=== PATIENT | female | born 1960 | race Caucasian/White ===

== ENCOUNTER 2020-03-15 13:59 | Inpatient (IN) | payer OTHER ==
[~2020-03-15 13:59] MED LIST: Iopamidol-370 76% 500 ML 1 ML ONE
[2020-03-15] MEDS ORDERED: Morphine 4 MG/ML VIAL ONE ×2 (14:04→14:35)
[2020-03-15] MEDS ORDERED: Ondansetron PF 4 MG/2 ML Vial ONE ×2 (14:04→16:10)
[2020-03-15 14:25] LABS: #Eosinphils 0.1 thou/uL (0.0-0.7); #Lymphocytes 2.9 thou/uL (1.20-3.40); #Monocytes 0.4 thou/uL (0.11-0.59); #Neutrophils 7.6 thou/uL (1.40-6.50); %Basophils 0.4 % (0.0-1.0); %Eosinophils 0.7 % (0.0-10.0); %Lymphocytes 26.5 % (21.0-51.0); %Monocytes 3.9 % (0.0-10.0); %Neutrophils 68.4 % (42.0-75.0); Mean Corpuscular HGB CONC 34.4 g/dL (32.0-36.0); Mean Corpuscular Hemoglobin 31.4 pg (27.0-31.0); Mean Corpuscular Volume 91.4 fL (78.0-98.0); Mean Platelet Volume 8.5 fL (7.4-10.4); Platelet Count 268 thou/uL (130-400); RBC Distribution Width 11.3 % (11.5-14.5); Red Blood Cell (RBC) Count 4.77 mill/uL (4.20-5.40); White Blood Cell (WBC) Count 11.1 thou/uL (4.8-10.8)
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
[2020-03-15 14:32] LABS: PTT 25.4 sec (22.9-36.1); Prothrombin Time 13.5 sec (12.0-14.7)
[2020-03-15 14:58] LABS: ALT (SGPT) 74 U/L (8-55); AST (SGOT) 81 U/L (5-34); Albumin 4.1 g/dL (3.5-5.0); Alkaline Phosphatase 91 U/L (40-110); Anion Gap 18 mmol/L (10-20); BUN (Urea Nitrogen) 11 mg/dL (9.8-20.1); Bilirubin, Total 0.6 mg/dL (0.2-1.2); Calc. Creatinine Clearance 0 mL/min (70-130); Calcium 9.4 mg/dL (7.8-10.44); Carbon Dioxide 21 mmol/L (22-29); Chloride 102 mmol/L (98-107); Estimated GFR-MDRD 73; Globulin 2.6 g/dL (2.4-3.5); Glucose 157 mg/dL (70-105); Potassium 3.3 mmol/L (3.5-5.1); Protein, Total 6.7 g/dL (6.0-8.3); Sodium 138 mmol/L (136-145)
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
[2020-03-15] MEDS ORDERED: Lidocaine 1% (PF) 30 ML VIAL ONE (15:18)
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
[2020-03-15 16:07] LABS: Magnesium 1.7 mg/dL (1.6-2.6); Phosphorus 2.3 mg/dL (2.3-4.7)
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
[2020-03-15 16:15] LABS: Lactic Acid 1.8 mmol/L (0.5-2.2)
[2020-03-15] MEDS ORDERED: hydrALAZINE 20 MG/ML VIAL SLOW IVP PRN (16:18)
[2020-03-15] MEDS ORDERED: Dextrose 50% Abboject 50 ML SYRINGE SLOW IVP PRN (16:18)
[2020-03-15] MEDS ORDERED: Dextrose 5% in Water 1,000 ML IV PRN (16:18)
[2020-03-15] MEDS ORDERED: Lorazepam 2 MG/ML VIAL SLOW IVP PRN (16:18)
[2020-03-15] MEDS ORDERED: Ondansetron PF 4 MG/2 ML Vial IVP PRN (16:18)
[2020-03-15] MEDS ORDERED: Morphine 2 MG/ML VIAL SLOW IVP PRN (16:18)
[2020-03-15] MEDS ORDERED: traMADol HCl 50 MG TAB PO PRN (16:21)
[2020-03-15] MEDS ORDERED: Sodium Chloride 0.9% 1,000 ML IV SCH (16:30)
[2020-03-15] MEDS ORDERED: Potassium Phosphate 30 MMOL in Sodium Chloride 0.9% 250 ML 250 ML IVPB SCH (17:30)
[2020-03-15] MEDS ORDERED: Magnesium 2 GM/50 ML 2 GM in Premix Bag 1 BAG IVPB SCH (17:45)
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
[2020-03-15] MEDS ORDERED: Magnesium 2 GM/50 ML BAG (IN WATER) ONE (18:38)
[2020-03-15] MEDS ORDERED: Acetaminophen 500 MG TAB ONE (18:38)
[2020-03-15] MEDS: Gabapentin 300 MG CAP PO SCH (22:23)
[2020-03-15] MEDS: Ibuprofen 600 MG TAB PO SCH (22:23)
[2020-03-15] MEDS: Famotidine/PF 20 mg/2ml Vial SLOW IVP SCH (22:24)
[2020-03-15] MEDS: Senokot S 8.6-50 MG TAB PO SCH (22:26)
[2020-03-15] MEDS: Acetaminophen 500 MG TAB PO SCH ×2 (22:26→22:30)
[2020-03-15] MEDS: traMADol HCl 50 MG TAB PO SCH (22:29)
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
[2020-03-15 23:32] VITALS: BMI 29.7
[2020-03-16] MEDS: Acetaminophen 500 MG TAB PO SCH ×3 (05:01→18:36)
[2020-03-16] MEDS: Ibuprofen 600 MG TAB PO SCH ×3 (05:02→21:26)
[2020-03-16] MEDS: traMADol HCl 50 MG TAB PO SCH ×4 (05:08→21:27)
[2020-03-16 05:15] LABS: #Lymphocytes 1.4 thou/uL (1.20-3.40); #Monocytes 0.5 thou/uL (0.11-0.59); #Neutrophils 7.1 thou/uL (1.40-6.50); %Basophils 0.1 % (0.0-1.0); %Eosinophils 0.3 % (0.0-10.0); %Lymphocytes 15.5 % (21.0-51.0); %Monocytes 5.3 % (0.0-10.0); %Neutrophils 78.8 % (42.0-75.0); Hemoglobin 12.6 g/dL (12.0-16.0); Mean Corpuscular HGB CONC 33.6 g/dL (32.0-36.0); Mean Corpuscular Hemoglobin 31.1 pg (27.0-31.0); Mean Corpuscular Volume 92.8 fL (78.0-98.0); Mean Platelet Volume 8.6 fL (7.4-10.4); Platelet Count 213 thou/uL (130-400); RBC Distribution Width 11.4 % (11.5-14.5); Red Blood Cell (RBC) Count 4.06 mill/uL (4.20-5.40); White Blood Cell (WBC) Count 9.1 thou/uL (4.8-10.8)
[2020-03-16 05:25] LABS: Anion Gap 16 mmol/L (10-20); BUN (Urea Nitrogen) 14 mg/dL (9.8-20.1); Calc. Creatinine Clearance 94 mL/min (70-130); Calcium 8.4 mg/dL (7.8-10.44); Carbon Dioxide 23 mmol/L (22-29); Chloride 98 mmol/L (98-107); Estimated GFR-MDRD 71; Glucose 142 mg/dL (70-105); Magnesium 2.2 mg/dL (1.6-2.6); Phosphorus 5.7 mg/dL (2.3-4.7); Potassium 3.1 mmol/L (3.5-5.1); Sodium 134 mmol/L (136-145)
--- NOTE | 2020-03-16 07:49 | RAD ---
EXAM: Single view of the chest HISTORY: Right apical pneumonia; right pneumothorax COMPARISON: CT chest 03/15/2020 FINDINGS: Single view of the chest shows an enlarged cardiomediastinal silhouette. No pneumothorax i s visualized. Linear opacities in both lower lobes likely represents atelectasis. No acute osseous abnormality. IMPRESSION: Bibasilar atelectasis
[2020-03-16 08:11] LABS: Amphetamine Not Detected (NotDetected); Barbiturates Screen Not Detected (NotDetected); Benzodiazepine Screen Detected (NotDetected); Cocaine Metabolite Screen Not Detected (NotDetected); Medtox Control Line Valid? VALID (VALID); Medtox Reader # READER 4; Methadone Not Detected (NotDetected); Methamphetamine Not Detected (NotDetected); Opiate Screen Detected (NotDetected); Oxycodone Screen Not Detected (NotDetected); Phencyclidine (PCP) Not Detected (NotDetected); THC/Cannabinoid Screen Detected (NotDetected); Tricyclic Screen Not Detected (NotDetected)
[2020-03-16] MEDS: Gabapentin 300 MG CAP PO SCH ×3 (08:16→21:26)
[2020-03-16] MEDS: Famotidine/PF 20 mg/2ml Vial SLOW IVP SCH ×2 (08:16→21:28)
[2020-03-16] MEDS: Senokot S 8.6-50 MG TAB PO SCH ×3 (08:17→21:28)
[2020-03-16] MEDS: Polyethylene Glycol 3350 17 GM Packet PO SCH (08:17)
[2020-03-16] MEDS ORDERED: Potassium Chloride 20 MEQ TAB PO SCH (09:15)
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
[2020-03-16] MEDS ORDERED: Melatonin 3 MG TAB PO PRN (10:28)
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
[2020-03-16 12:31] LABS: SARS-CoV-2 MS2 Positive; SARS-CoV-2 N Gene Negative; SARS-CoV-2 S Gene Negative; SARS-CoV-2 by NAA Not Detected (NotDetected); SARS-CoV-2 orf1ab Negative
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
[2020-03-17] MEDS: Acetaminophen 500 MG TAB PO SCH ×5 (00:24→23:29)
[2020-03-17] MEDS: traMADol HCl 50 MG TAB PO SCH ×4 (05:01→21:10)
[2020-03-17] MEDS: Ibuprofen 600 MG TAB PO SCH ×3 (05:01→21:11)
[2020-03-17 05:48] LABS: #Eosinphils 0.2 thou/uL (0.0-0.7); #Lymphocytes 1.9 thou/uL (1.20-3.40); #Monocytes 0.3 thou/uL (0.11-0.59); #Neutrophils 5.9 thou/uL (1.40-6.50); %Basophils 0.5 % (0.0-1.0); %Eosinophils 2.1 % (0.0-10.0); %Lymphocytes 22.5 % (21.0-51.0); %Monocytes 3.9 % (0.0-10.0); %Neutrophils 71.1 % (42.0-75.0); Hemoglobin 12.3 g/dL (12.0-16.0); Mean Corpuscular Hemoglobin 31.8 pg (27.0-31.0); Mean Corpuscular Volume 93.3 fL (78.0-98.0); Mean Platelet Volume 8.5 fL (7.4-10.4); Platelet Count 180 thou/uL (130-400); RBC Distribution Width 11.4 % (11.5-14.5); Red Blood Cell (RBC) Count 3.89 mill/uL (4.20-5.40); White Blood Cell (WBC) Count 8.2 thou/uL (4.8-10.8)
[2020-03-17 06:16] LABS: Anion Gap 11 mmol/L (10-20); BUN (Urea Nitrogen) 9 mg/dL (9.8-20.1); Calc. Creatinine Clearance 103 mL/min (70-130); Calcium 8.6 mg/dL (7.8-10.44); Carbon Dioxide 27 mmol/L (22-29); Chloride 104 mmol/L (98-107); Estimated GFR-MDRD 79; Glucose 101 mg/dL (70-105); Magnesium 2.4 mg/dL (1.6-2.6); Phosphorus 2.7 mg/dL (2.3-4.7); Potassium 3.2 mmol/L (3.5-5.1); Sodium 139 mmol/L (136-145)
[2020-03-17] MEDS ORDERED: Potassium Chloride 40 MEQ in Sodium Chloride 0.9% 250 ML 250 ML IVPB SCH (06:45)
[2020-03-17] MEDS ORDERED: Potassium Chloride 20 MEQ TAB PO SCH (07:45)
[2020-03-17] MEDS: Cyclobenzaprine 10 MG TAB PO PRN (08:33)
[2020-03-17] MEDS: Gabapentin 300 MG CAP PO SCH ×3 (08:33→21:11)
[2020-03-17] MEDS: Famotidine/PF 20 mg/2ml Vial SLOW IVP SCH (08:34)
[2020-03-17] MEDS: Enoxaparin Sodium 40 MG/0.4 ML SYRINGE SC SCH (08:34)
[2020-03-17] MEDS: Senokot S 8.6-50 MG TAB PO SCH ×2 (09:59→21:09)
[2020-03-17] MEDS: Famotidine 20 MG TAB PO SCH ×2 (09:59→21:09)
[2020-03-17] MEDS: Polyethylene Glycol 3350 17 GM Packet PO SCH (09:59)
[2020-03-17] MEDS ORDERED: Scopolamine 1.5 mg/72 hour Patch TD SCH (10:45)
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
[2020-03-18] MEDS: traMADol HCl 50 MG TAB PO SCH ×3 (05:00→15:13)
[2020-03-18] MEDS: Ibuprofen 600 MG TAB PO SCH ×2 (05:01→14:23)
[2020-03-18] MEDS: Acetaminophen 500 MG TAB PO SCH ×3 (05:01→18:15)
[2020-03-18] MEDS: Polyethylene Glycol 3350 17 GM Packet PO SCH (08:38)
[2020-03-18] MEDS: Enoxaparin Sodium 40 MG/0.4 ML SYRINGE SC SCH (08:38)
[2020-03-18] MEDS: Famotidine 20 MG TAB PO SCH ×2 (08:38→19:30)
[2020-03-18] MEDS: Senokot S 8.6-50 MG TAB PO SCH ×2 (08:39→19:32)
[2020-03-18] MEDS: Gabapentin 300 MG CAP PO SCH ×3 (08:39→19:30)
[2020-03-18] MEDS: traMADol HCl 50 MG TAB PO PRN ×2 (12:42→19:33)
[2020-03-18] MEDS: Cyclobenzaprine 10 MG TAB PO PRN (19:32)
[2020-03-18 19:36] VITALS: BP 156/79; TEMP 97.8
[2020-03-18] MEDS ORDERED: Metoprolol Tartrate 50 MG TAB PO SCH ×2 (21:00)
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
== END 2020-03-18 20:32 | DRG 964 ==
LOC: ERS 13:59 → EDBD 16:21 → ERHOLD 16:21 → SURG A 19:58
PROVIDERS: ADMIT Surgery; ATTEND Surgery
DX: S32.431A Displaced fracture of anterior column [iliopubic] of right acetabulum, initial encounter for closed fracture (principal); S27.0XXA Traumatic pneumothorax, initial encounter; S22.41XA Multiple fractures of ribs, right side, initial encounter for closed fracture; S32.119A Unspecified Zone I fracture of sacrum, initial encounter for closed fracture; R91.8 Other nonspecific abnormal finding of lung field; I10 Essential (primary) hypertension; F41.9 Anxiety disorder, unspecified; R40.2412 Glasgow coma scale score 13-15, at arrival to emergency department; S61.214A Laceration without foreign body of right ring finger without damage to nail, initial encounter; F32.9 Major depressive disorder, single episode, unspecified; Z98.890 Other specified postprocedural states; Z88.5 Allergy status to narcotic agent; Z79.899 Other long term (current) drug therapy; V44.5XXA Car driver injured in collision with heavy transport vehicle or bus in traffic accident, initial encounter
CPT/HCPCS: 36415; 70450; 71045; 71260; 72125; 72170; 74177; 80048; 80053; 80306; 80307; 83605; 83735; 84100; 85025; 85610; 85730; 87635; 93005; 96374; 96375; 96376; G0390; J1650; J2001; J2270; J2405; J3475; J3480; J7050; Q9967; S0028; U0003

== ENCOUNTER 2020-06-15 07:36 | Outpatient (CLI) | payer OTHER ==
--- NOTE | 2020-06-15 08:33 | MRI ---
EXAM: Left shoulder MRI without contrast: HISTORY: Left shoulder pain COMPARISON: None FINDINGS: Multiplanar, multisequence MRI examination of the shoulder is performed. A C joint:Arthrosis with minimal fluid and fat stranding in the subacromial and subdeltoid bursa. Sma ll undersurface spur of the distal clavicle. Supraspinatus tendon: Evidence for low-grade partial-thickness undersurface tearing at the level of t he magic angle. Infraspinatus tendon: Intact. Biceps tendon: Intact. Subscapularis tendon: Tendinopathy Rotator cuff muscles: Within normal limits of signal and volume.. 0.2 x 0.7 cm focus of calcific peritendonosis overlying the greater tuberosity. Glenoid labrum: Abnormal signal associated with the superior labrum evidence for a SLAP tear. Subchondral cystic changes noted within the anterior and posterior portion of the greater tuberosity with a small focus in the lesser tuberosity. IMPRESSION: Small focus of calcific peritendonosis. Evidence for SLAP tear. A C joint arthrosis. Minimal tendinopathy but no complete full-thickness retracted rotator cuff tear.
--- NOTE | 2020-06-15 09:21 | MRI ---
EXAM: Right shoulder MRI without contrast: HISTORY: Impingement syndrome right shoulder, shoulder pain COMPARISON: None FINDINGS: Multiplanar, multisequence MRI examination of the shoulder is performed. A C joint:Arthrosis with minimal fluid and fat stranding in the subacromial and subdeltoid bursa. The re is some downsloping of the lateral acromium. Supraspinatus tendon: Midgrade to high-grade partial-thickness undersurface tear with retraction back to the level of the rotator cable Infraspinatus tendon: Intact. Biceps tendon: Intact. Subscapularis tendon: Intact. Rotator cuff muscles: Within normal limits of signal and volume. Glenoid labrum: Somewhat blunted indistinct superior labrum without evidence for definitive acute tea r. No evidence for acute osteochondral defect or significant abnormal marrow edema signal. IMPRESSION: Mid to high-grade partial-thickness undersurface tear of the supraspinatus tendon with undersurface r etraction back to the level of the rotator cable. Somewhat blunted small caliber superior labrum without evidence for an overt acute tear.
== END 2020-06-15 07:37 | disposition home or self-care (01) ==
LOC: BICMRI 07:36
PROVIDERS: ATTEND Orthopaedic Surgery
DX: S46.912A Strain of unspecified muscle, fascia and tendon at shoulder and upper arm level, left arm, initial encounter (principal); M75.41 Impingement syndrome of right shoulder; M25.512 Pain in left shoulder; M75.111 Incomplete rotator cuff tear or rupture of right shoulder, not specified as traumatic; M19.012 Primary osteoarthritis, left shoulder; S43.432A Superior glenoid labrum lesion of left shoulder, initial encounter; M67.814 Other specified disorders of tendon, left shoulder

== ENCOUNTER 2020-08-25 14:19 | Outpatient (CLI) | payer OTHER ==
--- NOTE | 2020-08-25 14:56 | CT ---
EXAM: CT of the chest without contrast HISTORY: Follow-up of 2 pulmonary nodules in the right lower lobe COMPARISON: 03/15/2020 TECHNIQUE: Multiple contiguous axial images were obtained in a CT the chest without contrast. Coronal and sagittal reformats were performed. FINDINGS: HEART: Normal in size without focal cardiac abnormality. Mild calcifications in the coronary arteries and aorta. MEDIASTINUM: No hilar or mediastinal lymphadenopathy. Evaluation of the mediastinum is limited withou t IV contrast. LUNGS: There is a 5 mm nodule in the inferior aspect of the right middle lobe adjacent to the fissure on image 91 of 161. There is a 5 mm nodule in the right lower lobe on image 93 of 161. A nodular opacity is seen along the left major fissure measuring 6 mm in size that is stable. PLEURAL SPACE: No pneumothorax or pleural effusion. CHEST WALL SOFT TISSUES: Unremarkable OSSEOUS STRUCTURES: Degenerative changes in the spine. There are healed right posterior rib fractures . VISUALIZED SUBDIAPHRAGMATIC STRUCTURES: Unremarkable IMPRESSION: Stable pulmonary nodules.
== END 2020-08-25 14:20 | disposition home or self-care (01) ==
LOC: BICCT 14:19
PROVIDERS: ATTEND Family Medicine
DX: R91.1 Solitary pulmonary nodule (principal); R91.8 Other nonspecific abnormal finding of lung field
CPT/HCPCS: 71250